=== PATIENT | male | born 1940 | race Caucasian/White ===

== ENCOUNTER 2017-06-25 14:15 | Observation (INO) ==
[2017-06-25] MEDS ORDERED: Aspirin 81 MG TAB.CHEW PO ONE (14:25)
--- NOTE | 2017-06-25 14:42 | Emergency Department Note ---
Disposition Clinical Impression: Chest pain Qualifiers: Chest pain type: unspecified Qualified Code(s): R07.9 - Chest pain, unspecified Disposition: Admitted As Inpatient Condition: Good General Adult HPI - General Chief complaint: ED Chest Pain Stated complaint: Chest pain Time Seen by Provider: 06/25/17 14:22 Source: EMS Limitations: no limitations Nursing Notes Reviewed: Yes Vital Signs Reviewed: Yes - History of Present Illness HPI Narrative: 77-year-old male who reports for the last couple months he has been having intermittent substernal and left-sided chest pain. It lasts approximately one hour and then subsides. He reports it is usually worse with exertion however recently it has been increasing in frequency and lasting longer. He had an episode today that began while he was at rest which lasted longer than normal and was more severe so he called EMS. He denies any cardiac history. He is 100 % pain free currently. No new LE edema. He is emotion due to his spouse passing away about 2 months ago. Pain Scale: 0 Improves with: nothing Worsens with: nothing Associated symptoms: Reports: denies other symptoms Treatments Prior to Arrival: none - Related Data Allergies Allergy/AdvReac Type Severity Reaction Status Date / Time No Known Allergies Allergy Verified 06/25/17 14:17 All systems ED: reviewed and negative except as stated. Constitutional: Denies: fever ENT ED: Denies: throat pain Cardiovascular: Reports: chest pain Respiratory: Denies: cough, dyspnea Gastrointestinal: Denies: abdominal pain Musculoskeletal: Denies: back pain Integumentary: Denies: rash Past Medical History - Past Medical History Medical history: Reports: hypertension, osteoporosis - Social History Smoking Status: Never smoker Smokeless Tobacco Status: No Alcohol use: Reports: none Drug use: Reports: none Physical Exam - General Limitations: no limitations General appearance: alert, in no apparent distress - Head Head exam: atraumatic - Eye Eye exam: Present: normal appearance, PERRL - ENT ENT exam: normal exam, normal oropharynx - Neck Neck exam: Present: normal inspection - Chest Chest inspection: Present: normal inspection - Respiratory Respiratory exam: Present: normal lung sounds bilaterally. Absent: respiratory distress - Cardiovascular Cardiovascular exam: Present: regular rate, normal rhythm - Abdominal Exam Abdominal exam: Present: soft, Non-Tender, other (old hernia scar/incision/ hernia) - Extremities Exam Extremities exam: Present: normal inspection - Neurological Exam Neurological exam: Present: alert, oriented X3 - Skin Skin exam: Present: warm, dry Course Course Narrative: Troponin is negative. CP is resolved. Will admit for chest pain rule out. Vital Signs Temperature 97.4 F L 06/25/17 14:18 Pulse Rate 73 06/25/17 14:18 Respiratory Rate 15 06/25/17 14:18 Blood Pressure 187/110 06/25/17 14:18 O2 Sat by Pulse Oximetry 97 06/25/17 14:18 Temperature 97.4 F L 06/25/17 14:18 Pulse Rate 66 06/25/17 15:23 Respiratory Rate 16 06/25/17 16:09 Blood Pressure 178/99 06/25/17 16:09 O2 Sat by Pulse Oximetry 98 06/25/17 15:23 Oxygen Delivery Oxygen Delivery Room Air Medical Decision Making - Medical Records Medical records reviewed: Yes I reviewed the patient's medical records. - Lab Data Lab results reviewed: Yes I reviewed the patient's lab results. Result diagrams: 06/25/17 14:42 06/25/17 14:42 Lab Results 06/25/17 06/25/17 06/25/17 Range/Units 14:42 14:42 14:42 WBC 8.4 (4.3-11.1) K/mcL RBC 4.43 (4.19-5.50) M/mcL Hgb 13.3 (12.9-16.9) g/dL Hct 39.5 (37.5-50.1) % MCV 89.2 (83.0-100.0) fL MCH 30.0 (28.0-33.3) pg MCHC 33.7 (31.6-35.5) g/dL RDW 12.4 (11.5-14.5) % Plt Count 206 (140-400) K/mcL MPV 9.9 (9.4-12.4) fL Immature Gran % 0.5 (0-4) % Seg Neutrophils % 69.8 % Lymphocytes % 15.4 % Monocytes % 10.3 % Eosinophils % 3.5 % Basophils % 0.5 % Neutrophils # 5.9 (1.6-8.9) K/mcL Lymphocytes # 1.3 (0.6-4.6) K/mcL Monocytes # 0.9 (0.0-1.3) K/mcL Eosinophils # 0.3 (0.0-0.6) K/mcL Basophils # 0.0 (0.0-0.2) K/mcL Sodium 137 (136-145) mEq/L Potassium 4.3 (3.5-5.1) mEq/L Chloride 107 (98-107) mEq/L Carbon Dioxide 25 (23-29) mEq/L BUN 26 H (8-23) mg/dL Creatinine 1.02 (0.70-1.30) mg/dL Est GFR ( Amer) > 60 (> 60) Est GFR (Non-Af Amer) > 60 (> 60) BUN/Creatinine Ratio 25 (6-26) Glucose 89 (70-105) mg/dL Calculated Osmolality 288 (280-300) Calcium 9.9 (8.6-10.3) mg/dL Troponin I (< 0.04) ng/mL B-Natriuretic Peptide 190 H (Less than 100) pg/mL 06/25/17 Range/Units 14:42 WBC (4.3-11.1) K/mcL RBC (4.19-5.50) M/mcL Hgb (12.9-16.9) g/dL Hct (37.5-50.1) % MCV (83.0-100.0) fL MCH (28.0-33.3) pg MCHC (31.6-35.5) g/dL RDW (11.5-14.5) % Plt Count (140-400) K/mcL MPV (9.4-12.4) fL Immature Gran % (0-4) % Seg Neutrophils % % Lymphocytes % % Monocytes % % Eosinophils % % Basophils % % Neutrophils # (1.6-8.9) K/mcL Lymphocytes # (0.6-4.6) K/mcL Monocytes # (0.0-1.3) K/mcL Eosinophils # (0.0-0.6) K/mcL Basophils # (0.0-0.2) K/mcL Sodium (136-145) mEq/L Potassium (3.5-5.1) mEq/L Chloride (98-107) mEq/L Carbon Dioxide (23-29) mEq/L BUN (8-23) mg/dL Creatinine (0.70-1.30) mg/dL Est GFR ( Amer) (> 60) Est GFR (Non-Af Amer) (> 60) BUN/Creatinine Ratio (6-26) Glucose (70-105) mg/dL Calculated Osmolality (280-300) Calcium (8.6-10.3) mg/dL Troponin I < 0.03 (< 0.04) ng/mL B-Natriuretic Peptide (Less than 100) pg/mL - Radiology Data Radiology results reviewed: Yes I reviewed the patient's radiology results. - EKG Data EKG #1 EKG attestation: Yes I reviewed and interpreted this EKG. EKG shows normal: sinus rhythm Rate: normal Rhythm: NSR [place]/QRS: normal When compared to previous EKG there are: no significant changes Interpretation: no acute changes Attestation Statement - Attestation Attestation: I examined this patient and my medical decision-making was reviewed with the Resident Physician. I agree with the documented findings, disposition and treatment plan as described except to the extent set forth below. Patient presents to the emergency department with the chief complaint chest pain. He has been having some intermittent episodes with exertion. Today he had one that was worse at rest. It is since resolved. Patient is in no distress on examination. Heart regular rate and rhythm. Plan. The patient's EKG is unchanged from baseline. Cardiac workup. Likely admission. Troponin negative. Still pain free. Admitted for observation.
[2017-06-25 14:56] LABS: Basophils % 0.5 %; Eosinophils # 0.3 K/mcL (0.0-0.6); Eosinophils % 3.5 %; Hematocrit 39.5 % (37.5-50.1); Hemoglobin 13.3 g/dL (12.9-16.9); Immature Granulocytes % 0.5 % (0-4); Lymphocytes # 1.3 K/mcL (0.6-4.6); Lymphocytes % 15.4 %; Mean Corpuscular HGB Conc 33.7 g/dL (31.6-35.5); Mean Corpuscular Volume 89.2 fL (83.0-100.0); Mean Platelet Volume 9.9 fL (9.4-12.4); Monocytes # 0.9 K/mcL (0.0-1.3); Monocytes % 10.3 %; Neutrophils # 5.9 K/mcL (1.6-8.9); Platelet Count 206 K/mcL (140-400); Red Blood Count 4.43 M/mcL (4.19-5.50); Red Cell Distribution Width 12.4 % (11.5-14.5); Segmented Neutrophils % 69.8 %
[2017-06-25 15:10] LABS: BUN/Creatinine Ratio 25 (6-26); Blood Urea Nitrogen 26 mg/dL (8-23); Calcium 9.9 mg/dL (8.6-10.3); Carbon Dioxide 25 mEq/L (23-29); Chloride 107 mEq/L (98-107); Glucose 89 mg/dL (70-105); Osmolality,Calculated 288 (280-300); Potassium 4.3 mEq/L (3.5-5.1); Sodium 137 mEq/L (136-145); eGFR For African Americans > 60 (> 60); eGFR For Non-African Americans > 60 (> 60)
[2017-06-25] MEDS ORDERED: Naloxone 0.4 MG/ML INJ IVP PRN (16:12)
--- NOTE | 2017-06-25 16:23 | Internal Med History&Physical ---
<Arturo Medina - Last Filed: 06/25/17 20:47> Date of Encounter: 06/25/17 Time of Encounter: 16:18 Assessment and Plan (1) Chest pain Current visit: Yes Status: Acute Patient presents today with substernal and left-sided chest pain associated with exertion. He appears to be having stable angina. No prior cardiac history. Risk factors include age greater than 65 years and hypertension. Heart score of 3. His primary care provider is Dr. Shea. He is being admitted for observation to rule out unstable angina versus ACS, however, he also has HTN urgency which I believe to the the etiology of his symptoms. Workup thus far includes chest x-ray that is unremarkable and negative initial troponin. He is currently resting comfortably and free of chest pain. BP has improved since arrival to the ED. His chest pain has improved with improvement with BP. PLAN: - cardiac enzymes x 2 q 6 hr - EKG obtained in the ED showing no ischemia or ST elevation; normal sinus rhythm - Start ASA 81 mg daily - Metoprolol 12.5 mg PO BID, hold for HR lower than 55 bpm - O2 by NC to keep SpO2 greater than 92% - CBCD, BMP in AM - Heparin 5000 U SQ BID - 2D Echo -Start cardiac diet now; nothing by mouth after midnight on Tuesday - Nuclear stress test on Tuesday, hold off on Cardiology consult as results are pending Qualifiers: Chest pain type: unspecified Qualified Code(s): R07.9 - Chest pain, unspecified (2) Hypertensive urgency Current visit: Yes Status: Acute Presents to the ED today with systolic blood pressures in the 190s. Current systolic blood pressure is 169. He reports a prior history of hypertension however notes that his primary care provider had stopped his antihypertensive medications may well ago. -Start 12.5 mg metoprolol twice a day, first dose now (3) DVT prophylaxis Current visit: Yes Status: Acute Heparin 5000 units subcutaneous twice a day Internal Medicine - H&P: HPI Chief complaint: Chest pain Admitted From: Home Plans for Post Hospital Care: Home History of present illness: Mr. Pinzon is a 77 year old male with a PMH of HTN and osteoporosis. He presents today with a 1.5 month h/o substernal and left sided dull chest pain. Patient states that chest pain is primarily substernal left-sided with radiation to left shoulder. He notes that the chest pain seems to occur with exertion and improves with rest. However, he presents today because the chest pain is increasing in frequency and taking longer to subside with rest. He has no prior cardiac history. His only risk factor being age and hypertension. He reports that he has been anxious and stressed lately due to the recent passing of his . He denies any fever, chills, associated shortness of breath, nausea vomiting diarrhea, diaphoresis or unilateral extremity swelling or pain. Workup in the ED included a chest x-ray which was unremarkable and troponin which was found to be negative. She weaned and the patient upon my assessment in the emergency department was found to be in hypertensive crisis with a systolic blood pressure 169. Systolic blood pressure upon arrival to the ED was in the 190s. Due to clinical presentation, symptoms and hypertensive urgency the patient is being admitted for further workup and evaluation of ANGINA/ACS Past Med Surg Social Fam HX - Past Medical History Medical history: hypertension, osteoporosis - Social History Smoking Status: Never smoker Smokeless Tobacco Status: No Alcohol use: none Drug use: none - Additional Family History Additional family history: Noncontributory Internal Medicine - H&P: Meds 3 Allergy/AdvReac Type Severity Reaction Status Date / Time No Known Allergies Allergy Verified 06/25/17 14:17 All Systems PM: A 10-system review of systems was performed and is negative for pertinent findings except as documented above in the HPI. - Constitutional Constitutional: no chills, no fever(s), no night sweats - EENT Eyes: no change in vision, no discharge, no pain, no photophobia Ears: no ear discharge, no ear pain, no tinnitus Nose, mouth and throat: no dysphagia, no nasal discharge, no neck pain, no sore throat - Cardiovascular Cardiovascular ROS IM: as per HPI - Respiratory Respiratory: no cough, no dyspnea, no wheezing, no excessive phlegm production - Gastrointestinal Gastrointestinal: no abdominal pain, no diarrhea, no hematemesis, no hematochezia, no melena, no nausea, no vomiting - Musculoskeletal Musculoskeletal ROS IM: no numbness, no tingling - Integumentary Integumentary IM: no rash, no unusual bruising - Neurological Neurological ROS: no confusion, no convulsions, no focal weakness, no numbness, no tingling, no tremor(s) - Hematologic/Lymphatic Hematologic/Lymphatic: no easy bruising - Constitutional Vitals: Temp Pulse Resp BP Pulse Ox 97.4 F L 66 16 178/99 98 06/25/17 14:18 06/25/17 15:23 06/25/17 16:09 06/25/17 16:09 06/25/17 15:23 General appearance: Present: cooperative, A&O X 3, no acute distress, answers questions appropriately - Head Head exam: Present: atraumatic, normocephalic - Eye Eye exam: Present: PERRL, conjuntiva pink, sclera anicteric Pupils: Present: PERRL - Neck Neck exam general surgery: Present: supple, trachea midline. Absent: lymphadenopathy - Respiratory Respiratory exam: Present: CTAB. Absent: accessory muscle use, rales, rhonchi, wheezes - Cardiovascular Cardiovascular exam: Present: RRR, +S1, +S2. Absent: diastolic murmur, gallop, rubs, systolic murmur - GI/Abdominal GI/Abdominal exam: Present: normal bowel sounds, soft, no peritoneal signs. Absent: distended, tenderness - Extremities Exam Extremities exam: Present: warm, radial pulses palpable and symmetrical. Absent : calf tenderness, cyanotic, pedal edema - Neurological Exam Neurological exam: Present: CN II-XII intact, oriented X3, no focal deficits. Absent: pronater drift, facial droop, speech deficit - Skin Skin exam: Present: dry, intact Internal Med - H&P Results - Labs CBC & Chem 7: 06/25/17 14:42 06/25/17 14:42 - EKG Data -: EKG Interpreted by Myself EKG shows normal: sinus rhythm Rate: normal - EKG Data Prior EKG available for review: yes When compared to previous EKG: there is no significant change Interpretation IM: normal EKG - Diagnostic Studies Chest x-ray Status: image reviewed by me Additional comments: Minimal Left basal scarring/atelectasis. No acute pulmonary process <[place] P - Last Filed: 06/26/17 19:48> Date of Encounter: 06/26/17 Internal Medicine - H&P: HPI History of present illness: Mr. Pinzon is a 77 year old male All Systems PM: A 10-system review of systems was performed and is negative for pertinent findings except as documented above in the HPI. - Constitutional Vitals: Temp Pulse Resp BP Pulse Ox 97.8 F 56 14 144/76 96 06/26/17 06:51 06/26/17 06:51 06/26/17 06:51 06/26/17 06:51 06/26/17 06:51 Internal Med - H&P Results - Labs CBC & Chem 7: 06/26/17 02:09 06/26/17 02:09 Labs: Short CBC 06/26/17 Range/Units 02:09 WBC 8.7 (4.3-11.1) K/mcL Hgb 12.5 L (12.9-16.9) g/dL Hct 36.0 L (37.5-50.1) % Plt Count 217 (140-400) K/mcL BMP 06/26/17 02:09 Sodium 138 Potassium 3.9 Chloride 108 H Carbon Dioxide 26 BUN 25 H Creatinine 1.13 Glucose 97 Calcium 9.6 Cardiac Enzymes 06/25/17 06/26/17 Range/Units 19:51 02:09 Troponin I < 0.03 < 0.03 (< 0.04) ng/mL - Impressions ITS Impressions Echocardiogram 06/26/17 16:09 Impressions: LVEF 50-55%. Mild left ventricular diastolic dysfunction. Normal right ventricular structure and function. Mild aortic regurgitation. Left Ventricular Wall Motion: Rest Echo Findings All wall segments showed normal motion. Findings: Study Quality * Technically adequate exam. ECG Findings * Sinus bradycardia. Left Ventricle * LVEF 50-55%. * Basal sigmoid septum. * Mild left ventricular diastolic dysfunction. Right Ventricle * Normal right ventricular structure and function. Left Atrium * Normal left atrial size. Right Atrium * Normal right atrial size. Aortic Valve * Aortic valve not well visualized. * Mild aortic regurgitation. Mitral Valve * Normal mitral valve structure and function. Tricuspid Valve * No evidence of pulmonary hypertension. Pulmonic Valve * Pulmonic valve not well visualized. Aorta * Normally sized aortic root. Pericardium * The pericardium appears normal. IVC * The IVC is not well evaluated. - Attending Attestation I examined this patient and my medical decision-making was reviewed with the Resident Physician/ORANGE PEEL OPERATOR. I agree with the documented findings, disposition and treatment plan as described except to the extent set forth below.
[2017-06-25] MEDS: *HR* Heparin 5,000 UNIT/ML VIAL SQ SCH (18:06)
[2017-06-26] MEDS: Nitroglycerin 0.4 MG TAB.SUBL SL PRN ×2 (00:32→16:15)
[2017-06-26 02:17] LABS: Hemoglobin 12.5 g/dL (12.9-16.9); Immature Platelets 2.1 % (1.1-6.1); Mean Corpuscular HGB Conc 34.7 g/dL (31.6-35.5); Mean Corpuscular Hemoglobin 30.5 pg (28.0-33.3); Mean Corpuscular Volume 87.8 fL (83.0-100.0); Mean Platelet Volume 9.9 fL (9.4-12.4); Red Blood Count 4.1 M/mcL (4.19-5.50); Red Cell Distribution Width 12.2 % (11.5-14.5)
[2017-06-26 02:30] LABS: BUN/Creatinine Ratio 22 (6-26); Blood Urea Nitrogen 25 mg/dL (8-23); Calcium 9.6 mg/dL (8.6-10.3); Carbon Dioxide 26 mEq/L (23-29); Chloride 108 mEq/L (98-107); Cholesterol 124 mg/dL (< 200); Glucose 97 mg/dL (70-105); HDL Cholesterol 31 mg/dL (40-59); LDL Cholesterol,Calculated 76 mg/dL (0-99); Osmolality,Calculated 290 (280-300); Potassium 3.9 mEq/L (3.5-5.1); Sodium 138 mEq/L (136-145); Triglycerides 84 mg/dL (< 150); eGFR For African Americans > 60 (> 60); eGFR For Non-African Americans > 60 (> 60)
[2017-06-26] MEDS: *HR* Heparin 5,000 UNIT/ML VIAL SQ SCH ×2 (05:32→18:32)
[2017-06-26] MEDS: Aspirin 81 MG TAB.CHEW PO SCH (10:05)
--- NOTE | 2017-06-26 10:40 | Internal Med Progress Note ---
Date of Encounter: 06/26/17 Time of Encounter: 09:00 - Assessment and plan (1) Chest pain Current Visit: Yes Status: Acute Assessment and plan: Continue ASA,, BB, Statin ECHO and stress test pending NTG SL prn Lipid panel is unremarkable Trop neg, EKG non-ischemic Asymptomatic at this time Qualifiers: Chest pain type: unspecified Qualified Code(s): R07.9 - Chest pain, unspecified (2) Hypertensive urgency Current Visit: Yes Status: Resolved Assessment and plan: Now controlled, continue current meds (3) DVT prophylaxis Current Visit: Yes Status: Acute Assessment and plan: SQ heparin - Subjective Interval history: Patient with known hx of HTN not on meds, admitted to observation for HTN Urgency and chest pain Seen and evaluated at bedside No new complains Patient is grieving his , who 3 weeks ago and is very emotional- support provided He is otherwise stable and awaiting ECHO and stress test Blood pressure is currently controlled - Constitutional Vitals: Temp Pulse Resp BP Pulse Ox 97.8 F 56 14 144/76 96 06/26/17 06:51 06/26/17 06:51 06/26/17 06:51 06/26/17 06:51 06/26/17 06:51 General appearance: Present: cooperative, A&O X 3, no acute distress, answers questions appropriately - Head Head exam: Present: atraumatic, normocephalic - Eye Eye exam: Present: PERRL, conjuntiva pink, sclera anicteric Pupils: Present: PERRL - Neck Neck exam general surgery: Present: supple, trachea midline. Absent: lymphadenopathy - Respiratory Respiratory exam: Present: CTAB. Absent: accessory muscle use, rales, rhonchi, wheezes - Cardiovascular Cardiovascular exam: Present: RRR, +S1, +S2. Absent: diastolic murmur, gallop, rubs, systolic murmur - GI/Abdominal GI/Abdominal exam: Present: normal bowel sounds, soft, no peritoneal signs. Absent: distended, tenderness - Extremities Exam Extremities exam: Present: warm, radial pulses palpable and symmetrical. Absent : calf tenderness, cyanotic, pedal edema - Neurological Exam Neurological exam: Present: alert, CN II-XII intact, oriented X3, no focal deficits. Absent: pronater drift, facial droop, speech deficit - Skin Skin exam: Present: dry, intact Internal Medicine: Result - Labs CBC & Chem 7: 06/26/17 02:09 06/26/17 02:09 Labs: Short CBC 06/26/17 Range/Units 02:09 WBC 8.7 (4.3-11.1) K/mcL Hgb 12.5 L (12.9-16.9) g/dL Hct 36.0 L (37.5-50.1) % Plt Count 217 (140-400) K/mcL BMP 06/26/17 02:09 Sodium 138 Potassium 3.9 Chloride 108 H Carbon Dioxide 26 BUN 25 H Creatinine 1.13 Glucose 97 Calcium 9.6 Cardiac Enzymes 06/25/17 06/26/17 Range/Units 19:51 02:09 Troponin I < 0.03 < 0.03 (< 0.04) ng/mL Consult Discharge Plan - Plan Referrals: Jones Shea MD [Primary Care Provider] -
[2017-06-27] MEDS: *HR* Heparin 5,000 UNIT/ML VIAL SQ SCH (06:09)
[2017-06-27 06:53] VITALS: BP 158/76
[2017-06-27] MEDS ORDERED: Regadenoson 0.4 MG/5 ML SYRINGE IVP ONE (07:09)
[2017-06-27] MEDS: Aspirin 81 MG TAB.CHEW PO SCH (09:49)
--- NOTE | 2017-06-27 10:32 | Discharge Summary ---
Date of Encounter: 06/27/17 Time of Encounter: 10:31 - Discharge Diagnosis (1) Chest pain Priority: Primary Status: Acute Qualifiers: Chest pain type: unspecified Qualified Code(s): R07.9 - Chest pain, unspecified (2) Hypertensive urgency Priority: Primary Status: Resolved (3) DVT prophylaxis Priority: Primary Status: Acute - Discharge Medications Prescriptions: Aspirin 81 mg PO DAILY #30 tab.chew Metoprolol [Lopressor] 12.5 mg PO BID #30 tablet Simvastatin [Zocor] 20 mg PO HS #30 tablet Home Medications: Alendronate Sodium [Fosamax] 70 mg PO QWEEK 06/26/17 [History] Cholecalciferol (Vitamin D3) [Vitamin D3] 2,000 unit PO DAILY 06/26/17 [History] Cinacalcet [Sensipar] 30 mg PO DAILY 06/26/17 [History] Aspirin 81 mg PO DAILY #30 tab.chew 06/27/17 [Rx] Metoprolol [Lopressor] 12.5 mg PO BID #30 tablet 06/27/17 [Rx] Simvastatin [Zocor] 20 mg PO HS #30 tablet 06/27/17 [Rx] Allergies/Adverse Reactions: 3 Allergy/AdvReac Type Severity Reaction Status Date / Time No Known Allergies Allergy Verified 06/25/17 14:17 Procedures/tests Complete & Pending: Procedures Performed prior 72 hours Category Date Time Status NM júnior perf SPECT multi [NM] Routine Exams 06/25/17 16:12 Taken EV echocardiogram Stat Y 06/26/17 16:09 Completed SP pharm nuclear stress Stat Y 06/27/17 08:00 Completed Date of admission: 06/25/17 15:47 Primary care physician: Jones Shea MD Discharging clinician: Abhi Duran Anticipated date of discharge: 06/27/17 - Patient Status Disposition: Home, Self-Care Condition: Good Functional capacity at discharge: independent ambulation Overall status at discharge: patient is back to baseline - Discharge Instructions Instructions: Aspirin/Codeine (By mouth), Metoprolol (By mouth), Simvastatin ( By mouth) Follow Up With: Jones Shea MD [Primary Care Provider] - - Diet and Activity Activity: resume usual activities as tolerated Diet: low salt diet Interval History: See below Hospital course: Mr. Pinzon is a 77 year old male with PMH of OP and HTN admitted for HTN Urgency and Chest pain He had stopped taking antihypertensives on advice by his PCP prior to presentation He was wored up to r/o ACS EKG was unremarkable ECHO was essentially normal Stress test done 06/27/17 showed no ischemia or infartc. EF is >70%. Patient has been asymptomatic since admission, his blood pressure has been controlled on lopresor 12.5mg bid. He is medically stable to be discharged home on current meds Follow up with PCP - Time Spent with Patient Total time spent providing and/or coordinating discharge services: Less than 30 minutes - Constitutional Vitals: Temp Pulse Resp BP Pulse Ox 97.6 F 68 16 158/76 94 06/27/17 06:51 06/27/17 06:51 06/27/17 06:51 06/27/17 06:51 06/27/17 06:51 General appearance: Present: cooperative, A&O X 3, no acute distress, answers questions appropriately - Head Head exam: Present: atraumatic, normocephalic - Eye Eye exam: Present: PERRL, conjuntiva pink, sclera anicteric Pupils: Present: PERRL - Neck Neck exam general surgery: Present: supple, trachea midline. Absent: lymphadenopathy - Respiratory Respiratory exam: Present: CTAB. Absent: accessory muscle use, rales, rhonchi, wheezes - Cardiovascular Cardiovascular exam: Present: RRR, +S1, +S2. Absent: diastolic murmur, gallop, rubs, systolic murmur - GI/Abdominal GI/Abdominal exam: Present: normal bowel sounds, soft, no peritoneal signs. Absent: distended, tenderness - Extremities Exam Extremities exam: Present: warm, radial pulses palpable and symmetrical. Absent : calf tenderness, cyanotic, pedal edema - Neurological Exam Neurological exam: Present: alert, CN II-XII intact, oriented X3, no focal deficits. Absent: pronater drift, facial droop, speech deficit - Skin Skin exam: Present: dry, intact
--- NOTE | 2017-06-27 13:58 | Electrocardiograph Report ---
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
--- NOTE | 2017-06-27 15:20 | Electrocardiograph Report ---
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
== END 2017-06-27 12:16 | disposition home or self-care (01) ==
LOC: EMEROO 14:15 → 3ANU 14:15 → SUATTDRO 15:47 → 3ANU 16:10
PROVIDERS: ADMIT Registered Nurse; ATTEND Internal Medicine